=== PATIENT | female | born 1995 | race Caucasian/White ===

== ENCOUNTER → 2018-04-13 16:34 | Outpatient (REF) | payer MEDICAID, SELFPAY | LOC: LAB 16:34 | PROVIDERS: Visit Provider Obstetrics & Gynecology | DX: Z34.90 Encounter for supervision of normal pregnancy, unspecified, unspecified trimester (principal) | CPT/HCPCS: 86403 ==

== ENCOUNTER 2018-04-24 07:58 | Inpatient (IN) ==
[2018-04-24 09:11] LABS: Eosinophils # 0.1 K/mm3 (0.0-0.4); Eosinophils % 1.2 % (0.1-12.0); Hematocrit 33.1 % (37.0-47.0); Hemoglobin 10.9 g/dL (12.2-16.2); Lymphocytes # 1.4 K/mm3 (0.7-4.5); Lymphocytes % 16.4 K/mm3 (10-50); Mean Corpuscular HGB Conc 33.1 g/dL (31.8-35.4); Mean Corpuscular Hemoglobin 29.4 pg (27.0-31.2); Mean Corpuscular Volume 88.9 fl (81-99); Mean Platelet Volume 10.4 fl (7.4-10.4); Monocytes # 0.3 K/mm3 (0.1-1.0); Monocytes % 3.6 % (1.7-9.3); Neutrophils # 6.6 K/mm3 (1.8-7.8); Neutrophils % 78.8 % (37.0-80.0); Platelet Count 114 K/mm3 (142-424); Red Blood Count 3.72 M/mm3 (4.20-5.40); Red Cell Distribution Width 16.8 % (11.5-17.5); White Blood Count 8.3 K/mm3 (4.5-13.0)
--- NOTE | 2018-04-24 09:30 | Progress Note ---
Internal Medicine - PN: Subj *Date: 04/24/18 *Time: 09:28 Interval history: This 22-year-old 1, para 0, Ab0 white female is admitted at 39 weeks of gestation regular contractions since 0500. GBS is negative. Her cervix is 2 cm , 90%, with a presenting vertex at -2 station. She is uncomfortable and wishes to proceed in labor with an epidural, which has been ordered. An amniotomy reveals clear fluid, and an internal toco has been placed. Plan is to augment with intravenous Pitocin under a labor epidural, and expect vaginal delivery. Exam Vital signs and Labs for Last 24 Hours: Temp Pulse Resp BP Pulse Ox 97.9 F 89 20 118/59 100 04/24/18 08:27 04/24/18 08:27 04/24/18 08:27 04/24/18 08:27 04/24/18 08:27 Laboratory Results - last 24 hr 04/24/18 08:50: WBC 8.3, RBC 3.72 L, Hgb 10.9 L, Hct 33.1 L, MCV 88.9, MCH 29.4 , MCHC 33.1, RDW 16.8, Plt Count 114 L, MPV 10.4, Neut % (Auto) 78.8, Lymph % ( Auto) 16.4, [place] % (Auto) 3.6, Eos % (Auto) 1.2, Baso % (Auto) 0.0 L, Neut # ( Auto) 6.6, Lymph # (Auto) 1.4, [place] # (Auto) 0.3, Eos # (Auto) 0.1, Baso # (Auto ) 0.0 I & O for Last 24 hours: Intake & Output 04/21/18 04/22/18 04/23/18 04/24/18 11:59 11:59 11:59 11:59 Weight 169 lb
--- NOTE | 2018-04-24 10:43 | Progress Note ---
Internal Medicine - PN: Subj *Date: 04/24/18 *Time: 10:43 (Epidural is now in situ and Pitocin has been begun to augment labor. Cervix is unchanged at this point.) Exam Vital signs and Labs for Last 24 Hours: Temp Pulse Resp BP Pulse Ox 97.9 F 89 20 118/59 100 04/24/18 08:27 04/24/18 08:27 04/24/18 08:27 04/24/18 08:27 04/24/18 08:27 Laboratory Results - last 24 hr 04/24/18 08:50: WBC 8.3, RBC 3.72 L, Hgb 10.9 L, Hct 33.1 L, MCV 88.9, MCH 29.4 , MCHC 33.1, RDW 16.8, Plt Count 114 L, MPV 10.4, Neut % (Auto) 78.8, Lymph % ( Auto) 16.4, [place] % (Auto) 3.6, Eos % (Auto) 1.2, Baso % (Auto) 0.0 L, Neut # ( Auto) 6.6, Lymph # (Auto) 1.4, [place] # (Auto) 0.3, Eos # (Auto) 0.1, Baso # (Auto ) 0.0 04/24/18 08:50: Blood Type O Negative, Antibody Screen Negative I & O for Last 24 hours: Intake & Output 04/21/18 04/22/18 04/23/18 04/24/18 11:59 11:59 11:59 11:59 Weight 169 lb
--- NOTE | 2018-04-24 11:28 | Progress Note ---
Internal Medicine - PN: Subj *Date: 04/24/18 *Time: 11:28 (Cervix is now 2-3 cm, 90%, with a presenting vertex at -2 station. Patient is complaining of some nausea and will be treated with IV Phenergan. Progressing.) Exam Vital signs and Labs for Last 24 Hours: Temp Pulse Resp BP Pulse Ox 97.9 F 89 20 118/59 100 04/24/18 08:27 04/24/18 08:27 04/24/18 08:27 04/24/18 08:27 04/24/18 08:27 Laboratory Results - last 24 hr 04/24/18 08:50: WBC 8.3, RBC 3.72 L, Hgb 10.9 L, Hct 33.1 L, MCV 88.9, MCH 29.4 , MCHC 33.1, RDW 16.8, Plt Count 114 L, MPV 10.4, Neut % (Auto) 78.8, Lymph % ( Auto) 16.4, [place] % (Auto) 3.6, Eos % (Auto) 1.2, Baso % (Auto) 0.0 L, Neut # ( Auto) 6.6, Lymph # (Auto) 1.4, [place] # (Auto) 0.3, Eos # (Auto) 0.1, Baso # (Auto ) 0.0 04/24/18 08:50: Blood Type O Negative, Antibody Screen Negative I & O for Last 24 hours: Intake & Output 04/21/18 04/22/18 04/23/18 04/24/18 11:59 11:59 11:59 11:59 Weight 169 lb
[2018-04-24 12:49] LABS: Microscopic, Urine URINE MICROSCOPIC (MICROSCOPIC)
[2018-04-24 12:51] LABS: Appearance,Urine CLEAR (Clear); Bilirubin,Urine Negative (Negative); Blood, Urine 2+ (Negative); Color,Urine YELLOW (Yellow); Glucose,Urine (UA) 3+ (Negative); Ketones,Urine Negative (Negative); Leukocyte Esterase,Urine Negative (Negative); Protein,Urine Negative (Negative); Specific Gravity, Urine 1.015 (1.005-1.030); Urobilinogen,Urine 0.2 EU/dl (0.2)
--- NOTE | 2018-04-24 13:03 | Progress Note ---
Internal Medicine - PN: Subj *Date: 04/24/18 *Time: 13:03 (Cervix is now completely effaced, 4 cm, with the presenting vertex at -1 station. Contractions are more regular.) Exam Vital signs and Labs for Last 24 Hours: Temp Pulse Resp BP Pulse Ox 97.9 F 89 20 118/59 100 04/24/18 08:27 04/24/18 08:27 04/24/18 08:27 04/24/18 08:27 04/24/18 08:27 Laboratory Results - last 24 hr 04/24/18 08:50: WBC 8.3, RBC 3.72 L, Hgb 10.9 L, Hct 33.1 L, MCV 88.9, MCH 29.4 , MCHC 33.1, RDW 16.8, Plt Count 114 L, MPV 10.4, Neut % (Auto) 78.8, Lymph % ( Auto) 16.4, [place] % (Auto) 3.6, Eos % (Auto) 1.2, Baso % (Auto) 0.0 L, Neut # ( Auto) 6.6, Lymph # (Auto) 1.4, [place] # (Auto) 0.3, Eos # (Auto) 0.1, Baso # (Auto ) 0.0 04/24/18 08:50: Blood Type O Negative, Antibody Screen Negative 04/24/18 12:40: Urine Color Yellow, Urine Appearance Clear, Urine pH 7.0, Ur Specific [place] 1.015, Urine Protein Negative, Urine Glucose (UA) 3+, Urine Ketones Negative, Urine Blood 2+, Urine Nitrate Negative, Urine Bilirubin Negative, Urine Urobilinogen 0.2, Ur Leukocyte Esterase Negative I & O for Last 24 hours: Intake & Output 04/22/18 04/23/18 04/24/18 04/25/18 11:59 11:59 11:59 11:59 Weight 169 lb
[2018-04-24 13:09] LABS: Bacteria,Urine 1+ /lpf; Mucus,Urine 2+ /lpf; WBC,Urine Occasional #/hpf (0-3)
--- NOTE | 2018-04-24 14:51 | Progress Note ---
Internal Medicine - PN: Subj *Date: 04/24/18 *Time: 14:51 (She is now completely effaced, 5-6 cm, presenting vertex at 0 station.) Exam Vital signs and Labs for Last 24 Hours: Temp Pulse Resp BP Pulse Ox 97.9 F 89 20 118/59 100 04/24/18 08:27 04/24/18 08:27 04/24/18 08:27 04/24/18 08:27 04/24/18 08:27 Laboratory Results - last 24 hr 04/24/18 08:50: WBC 8.3, RBC 3.72 L, Hgb 10.9 L, Hct 33.1 L, MCV 88.9, MCH 29.4 , MCHC 33.1, RDW 16.8, Plt Count 114 L, MPV 10.4, Neut % (Auto) 78.8, Lymph % ( Auto) 16.4, [place] % (Auto) 3.6, Eos % (Auto) 1.2, Baso % (Auto) 0.0 L, Neut # ( Auto) 6.6, Lymph # (Auto) 1.4, [place] # (Auto) 0.3, Eos # (Auto) 0.1, Baso # (Auto ) 0.0 04/24/18 08:50: Blood Type O Negative, Antibody Screen Negative 04/24/18 12:40: Urine Color Yellow, Urine Appearance Clear, Urine pH 7.0, Ur Specific [place] 1.015, Urine Protein Negative, Urine Glucose (UA) 3+, Urine Ketones Negative, Urine Blood 2+, Urine Nitrate Negative, Urine Bilirubin Negative, Urine Urobilinogen 0.2, Ur Leukocyte Esterase Negative, Urine RBC 10- 20, Urine WBC Occasional, Ur Squamous Epith Cells 3-5, Urine Bacteria 1+, Urine Mucus 2+ I & O for Last 24 hours: Intake & Output 04/22/18 04/23/18 04/24/18 04/25/18 11:59 11:59 11:59 11:59 Weight 169 lb
--- NOTE | 2018-04-24 16:02 | Progress Note ---
Internal Medicine - PN: Subj *Date: 04/24/18 *Time: 16:02 (Cervix is now completely effaced, 9 cm, 0 station.) Exam Vital signs and Labs for Last 24 Hours: Temp Pulse Resp BP Pulse Ox 97.9 F 89 20 118/59 100 04/24/18 08:27 04/24/18 08:27 04/24/18 08:27 04/24/18 08:27 04/24/18 08:27 Laboratory Results - last 24 hr 04/24/18 08:50: WBC 8.3, RBC 3.72 L, Hgb 10.9 L, Hct 33.1 L, MCV 88.9, MCH 29.4 , MCHC 33.1, RDW 16.8, Plt Count 114 L, MPV 10.4, Neut % (Auto) 78.8, Lymph % ( Auto) 16.4, [place] % (Auto) 3.6, Eos % (Auto) 1.2, Baso % (Auto) 0.0 L, Neut # ( Auto) 6.6, Lymph # (Auto) 1.4, [place] # (Auto) 0.3, Eos # (Auto) 0.1, Baso # (Auto ) 0.0 04/24/18 08:50: Blood Type O Negative, Antibody Screen Negative 04/24/18 12:40: Urine Color Yellow, Urine Appearance Clear, Urine pH 7.0, Ur Specific [place] 1.015, Urine Protein Negative, Urine Glucose (UA) 3+, Urine Ketones Negative, Urine Blood 2+, Urine Nitrate Negative, Urine Bilirubin Negative, Urine Urobilinogen 0.2, Ur Leukocyte Esterase Negative, Urine RBC 10- 20, Urine WBC Occasional, Ur Squamous Epith Cells 3-5, Urine Bacteria 1+, Urine Mucus 2+ I & O for Last 24 hours: Intake & Output 04/22/18 04/23/18 04/24/18 04/25/18 11:59 11:59 11:59 11:59 Weight 169 lb
--- NOTE | 2018-04-24 16:48 | Progress Note ---
Internal Medicine - PN: Subj *Date: 04/24/18 *Time: 16:48 (Cervix now complete, complete, +1. Patient will begin pushing.) Exam Vital signs and Labs for Last 24 Hours: Temp Pulse Resp BP Pulse Ox 97.9 F 89 20 118/59 100 04/24/18 08:27 04/24/18 08:27 04/24/18 08:27 04/24/18 08:27 04/24/18 08:27 Laboratory Results - last 24 hr 04/24/18 08:50: WBC 8.3, RBC 3.72 L, Hgb 10.9 L, Hct 33.1 L, MCV 88.9, MCH 29.4 , MCHC 33.1, RDW 16.8, Plt Count 114 L, MPV 10.4, Neut % (Auto) 78.8, Lymph % ( Auto) 16.4, [place] % (Auto) 3.6, Eos % (Auto) 1.2, Baso % (Auto) 0.0 L, Neut # ( Auto) 6.6, Lymph # (Auto) 1.4, [place] # (Auto) 0.3, Eos # (Auto) 0.1, Baso # (Auto ) 0.0 04/24/18 08:50: Blood Type O Negative, Antibody Screen Negative 04/24/18 12:40: Urine Color Yellow, Urine Appearance Clear, Urine pH 7.0, Ur Specific [place] 1.015, Urine Protein Negative, Urine Glucose (UA) 3+, Urine Ketones Negative, Urine Blood 2+, Urine Nitrate Negative, Urine Bilirubin Negative, Urine Urobilinogen 0.2, Ur Leukocyte Esterase Negative, Urine RBC 10- 20, Urine WBC Occasional, Ur Squamous Epith Cells 3-5, Urine Bacteria 1+, Urine Mucus 2+ I & O for Last 24 hours: Intake & Output 04/22/18 04/23/18 04/24/18 04/25/18 11:59 11:59 11:59 11:59 Weight 169 lb
--- NOTE | 2018-04-24 17:21 | Progress Note ---
Delivery date: 04/24/18 Events: Labor Augmentation Intrapartal events: None Induction method: none Delivery augmentation: rupture of membranes, pitocin Delivery monitor: internal FHT, internal uterine Route of delivery: forceps Indication for instrumentation: nonreassuring FHR tracing Episiotomy description: Midline Laceration description: None Delivery repair: vicryl Estimated blood loss (mL): 350 Anesthesia type: Epidural Disposition: floor Complications: None Narrative: This 22-year-old 1, now para 1, Ab0 white female was admitted at 39 weeks of gestation with regular contractions at 2 cm of dilatation. Her contractions became disparate, and she was augmented with intravenous Pitocin. An amniotomy revealed clear fluid, and an internal monitor was placed. She labored under a labor epidural, which worked well. She went steadily to completion, and was in the process of pushing with the vertex at +2 station, when bradycardia persisted in the 70s. She was delivered by outlet forceps over midline episiotomy. There was no nuchal cord, both the cord was wrapped around the baby's right leg. There was no meconium. The baby' s nasal and oropharynx were bulb suctioned, and the baby cried spontaneously on the perineum, as was delivered. The cord was clamped and cut, 3 vessels were noted to be within the cord, and cord blood was obtained. The cord pH was 7.28. The baby was handed into the arms of the attending RN, who assigned Apgars of 9 at 1 minute and 9 at 5 minutes to this 6 lbs. 11 oz., 19 inch female infant, born at 1700. The placenta was delivered spontaneously, intact, at 1705, making the total time in labor 12 hours 5 minutes. The uterus was inspected and was felt to be clean, and was involuting well, with IV Pitocin running. There were no lacerations or extensions of the midline episiotomy, which was closed in the usual fashion, in layers, with 2-0 Vicryl. The rectovaginal septum was intact at the close of the procedure. The sponge and needle count was correct. Estimated blood loss was 350 cc. The patient tolerated procedure well, and was recovered in excellent condition. Her blood type is O Rh-, and she will be worked up for Rh immunoglobulin eligibility. Her rubella titer is immune. She plans to breast-feed.
--- NOTE | 2018-04-25 06:19 | Progress Note ---
Internal Medicine - PN: Subj *Date: 04/25/18 *Time: 06:16 (This is day #1. The patient is afebrile. Vital signs stable. Abdomen soft. Lochia normal. Uterine fundus involuting well. Episiotomy healing well. She is breast-feeding. Impression: Stable.) Exam Vital signs and Labs for Last 24 Hours: Temp Pulse Resp BP Pulse Ox 97.9 F 89 20 118/59 100 04/24/18 08:27 04/24/18 08:27 04/24/18 08:27 04/24/18 08:27 04/24/18 08:27 Laboratory Results - last 24 hr 04/24/18 08:50: WBC 8.3, RBC 3.72 L, Hgb 10.9 L, Hct 33.1 L, MCV 88.9, MCH 29.4 , MCHC 33.1, RDW 16.8, Plt Count 114 L, MPV 10.4, Neut % (Auto) 78.8, Lymph % ( Auto) 16.4, [place] % (Auto) 3.6, Eos % (Auto) 1.2, Baso % (Auto) 0.0 L, Neut # ( Auto) 6.6, Lymph # (Auto) 1.4, [place] # (Auto) 0.3, Eos # (Auto) 0.1, Baso # (Auto ) 0.0 04/24/18 08:50: Blood Type O Negative, Antibody Screen Negative 04/24/18 12:40: Urine Color Yellow, Urine Appearance Clear, Urine pH 7.0, Ur Specific [place] 1.015, Urine Protein Negative, Urine Glucose (UA) 3+, Urine Ketones Negative, Urine Blood 2+, Urine Nitrate Negative, Urine Bilirubin Negative, Urine Urobilinogen 0.2, Ur Leukocyte Esterase Negative, Urine RBC 10- 20, Urine WBC Occasional, Ur Squamous Epith Cells 3-5, Urine Bacteria 1+, Urine Mucus 2+ 04/24/18 17:11: Cord ABG pH 7.28 L I & O for Last 24 hours: Intake & Output 04/22/18 04/23/18 04/24/18 04/25/18 11:59 11:59 11:59 11:59 Weight 169 lb
[2018-04-25 07:56] LABS: Hematocrit 28.2 % (37.0-47.0)
[2018-04-25 08:06] LABS: Hemoglobin 9.2 g/dL (12.2-16.2)
--- NOTE | 2018-04-25 15:25 | Progress Note ---
Internal Medicine - PN: Subj *Date: 04/25/18 *Time: 15:25 (Doing well. Nursing well. Abdomen soft. Impression: Stable.) Exam Vital signs and Labs for Last 24 Hours: Temp Pulse Resp BP Pulse Ox 97.9 F 89 20 118/59 100 04/24/18 08:27 04/24/18 08:27 04/24/18 08:27 04/24/18 08:27 04/24/18 08:27 Laboratory Results - last 24 hr 04/24/18 17:11: Cord ABG pH 7.28 L 04/25/18 07:23: Hgb 9.2 L D, Hct 28.2 L I & O for Last 24 hours: Intake & Output 04/23/18 04/24/18 04/25/18 04/26/18 11:59 11:59 11:59 11:59 Weight 169 lb
--- NOTE | 2018-04-26 08:39 | Progress Note ---
Internal Medicine - PN: Subj *Date: 04/26/18 *Time: 08:39 (This is day #2. The patient is afebrile. Vital signs stable. Uterine fundus has involuted well. She is well. Abdomen soft. Lochia normal. Episiotomy healing well. She will be discharged today.) Exam Vital signs and Labs for Last 24 Hours: Temp Pulse Resp BP Pulse Ox 97.9 F 89 20 118/59 100 04/24/18 08:27 04/24/18 08:27 04/24/18 08:27 04/24/18 08:27 04/24/18 08:27 I & O for Last 24 hours: Intake & Output 04/23/18 04/24/18 04/25/18 04/26/18 11:59 11:59 11:59 11:59 Weight 169 lb
--- NOTE | 2018-04-26 08:42 | Discharge Summary ---
General - General Admission date:: 04/24/18 Discharge date: 04/26/18 (This 22-year-old 1, now para 1, Ab0 white female was admitted at 39 weeks of gestation in active labor. She was augmented with intravenous Pitocin, and labored under a labor epidural, which worked well. She delivered by outlet forceps over a midline episiotomy at 1700 hrs. on 04/24/18. The baby was an 9/9, 6 lbs. 11 oz., 19 inch female , who is breast-feeding and is done well. , the patient is done well. She is eating and ambulating, and has had a bowel movement. Her hemoglobin is 9.2 g, but she is clinically stable. Her uterine fundus has involuted well. Her lochia is normal. Her episiotomy is healing well. She is discharged home on the second day on iron and vitamins, and on Tylenol and Motrin as needed for pain. She is also given a prescription for Tylenol 3 ounces #20), 1 p.o. every 6 hours as needed pain. She is given appropriate instructions as to diet, exercise, and perineal care, and she is to return to the office in 3 weeks for follow-up. Her blood type is O Rh-, but the baby is also Rh-, and therefore she is not a candidate for RhoGam. Her rubella titer is immune. She is not a smoker.) Objective Vital signs: Temp Pulse Resp BP Pulse Ox 97.9 F 89 20 118/59 100 04/24/18 08:27 04/24/18 08:27 04/24/18 08:27 04/24/18 08:27 04/24/18 08:27 Discharge Plan - Patient Discharge Instructions - Follow up Plan Home Medications: Home Medications Medication Instructions Recorded Confirmed Type 1 tab PO QHS 04/13/18 04/24/18 History vitamin,calcium,[id number] acid tablet Prescriptions/Medication Reconciliation: No Action vitamin,calcium,[id number] acid tablet 1 tab PO QHS
--- NOTE | 2018-05-08 15:18 | Progress Note ---
Internal Medicine - PN: Subj *Date: 05/08/18 *Time: 15:10 Exam Vital signs and Labs for Last 24 Hours: Temp Pulse Resp BP Pulse Ox 97.9 F 89 20 118/59 100 04/24/18 08:27 04/24/18 08:27 04/24/18 08:27 04/24/18 08:27 04/24/18 08:27
== END 2018-04-26 10:30 | disposition home or self-care (01) ==
LOC: OBOUT 07:58 → OB 08:03
PROVIDERS: ADMIT Obstetrics & Gynecology; ATTEND Obstetrics & Gynecology